=== PATIENT | female | born 1990 | race Caucasian/White ===

== ENCOUNTER 2018-09-22 15:25 | Emergency (ER) | payer SELFPAY ==
[2018-09-22 15:26] VITALS: BP 122/89; PULSE 108; RESP 17; TEMP 36.3; O2SAT 100; BMI 20.2
--- NOTE | 2018-09-22 15:41 | ED.VISSUMM ---
- ER Visit Summary Date of Service: 09/22/18 Chief Complaint: Vomiting and diarrhea History of Present Illness: The patient is a 28 F presenting with vomiting and diarrhea. Patient states this started 1 week ago. She has had several episodes of both vomiting and diarrhea each day. States she has had 3 episodes of vomiting and one episode of diarrhea today. She denies blood in her stool or emesis. She does have sick contacts. She has had subjective fever and chills. She denies urinary complaints. She has had no recent antibiotics. She has a history of IBS. She denies other complaints. Physical Examination: Vitals are stable. HR 108. Patient is afebrile. Alert no acute distress. HEENT exam is unremarkable. Neck is supple. Lungs are clear and equal bilaterally. Heart is regular and tachycardic Abdomen is soft nontender nondistended. No guarding or rebound Extremities are unremarkable. Skin is warm and dry. Remainder of exam is unremarkable. Emergency Department Course and Treatment: Patient was given IV fluids, Zofran. CBC normal except hemoglobin 11.9. Chemistries unremarkable. Liver lipase are normal. Urinalysis unremarkable. HCG negative. Influenza negative. Patient is feeling improved following medication and fluids. She is able to tolerate p.o. in the emergency department. Her abdomen is soft and nontender with no rebound or guarding. She is advised to follow-up with Dr. Covington international logistics coordinator for no doc. Advised return to ED if worsening complaints. Disposition: Discharge home Impression: Vomiting and diarrhea This note was generated with [employer] dictation software. It may contain incorrect words, spelling, and punctuation that were not noted in review of the chart prior to signing ED Disposition - Plan for ED Patient: Chief Complaint: Nausea/Vomiting/Diarrhea Instructions: ED Vomiting Diarrhea Nonspecific Ad Prescriptions: Ondansetron [Zofran Odt] 4 mg PO Q8H PRN PRN #10 tablet PRN Reason: Nausea Referrals: Alanna Covington MD [STAFF PHYSICIAN] -
[2018-09-22 15:42] VITALS: TEMP 36.3
--- NOTE | 2018-09-22 15:44 | ED.DCSUM_ITS ---
- ER Visit Summary Date of Service: 09/22/18 Chief Complaint: Vomiting and diarrhea History of Present Illness: The patient is a 28 F presenting with vomiting and diarrhea. Patient states this started 1 week ago. She has had several episodes of both vomiting and diarrhea each day. States she has had 3 episodes of vomiting and one episode of diarrhea today. She denies blood in her stool or emesis. She does have sick contacts. She has had subjective fever and chills. She denies urinary complaints. She has had no recent antibiotics. She has a history of IBS. She denies other complaints. Physical Examination: Vitals are stable. HR 108. Patient is afebrile. Alert no acute distress. HEENT exam is unremarkable. Neck is supple. Lungs are clear and equal bilaterally. Heart is regular and tachycardic Abdomen is soft nontender nondistended. No guarding or rebound Extremities are unremarkable. Skin is warm and dry. Remainder of exam is unremarkable. Emergency Department Course and Treatment: Patient was given IV fluids, Zofran. CBC normal except hemoglobin 11.9. Chemistries unremarkable. Liver lipase are normal. Urinalysis unremarkable. HCG negative. Influenza negative. Patient is feeling improved following medication and fluids. She is able to tolerate p.o. in the emergency department. Her abdomen is soft and nontender with no rebound or guarding. She is advised to follow-up with Dr. Covington manager of selection and assessment for no doc. Advised return to ED if worsening complaints. Disposition: Discharge home Impression: Vomiting and diarrhea This note was generated with [employer] dictation software. It may contain incorrect words, spelling, and punctuation that were not noted in review of the chart prior to signing ED Disposition - Plan for ED Patient: Chief Complaint: Nausea/Vomiting/Diarrhea Instructions: ED Vomiting Diarrhea Nonspecific Ad Prescriptions: Ondansetron [Zofran Odt] 4 mg PO Q8H PRN PRN #10 tablet PRN Reason: Nausea Referrals: Alanna Covington MD [STAFF PHYSICIAN] -
[2018-09-22] MEDS: 0.9% Normal Saline 1,000 ML 1000 ML IV (15:52)
[2018-09-22] MEDS: Ondansetron 4 MG/2 ML Vial IV (15:52)
[2018-09-22 16:12] LABS: Bacteria 0 SEEN /hpf (None Seen); Mucous, Urine 0 SEEN /hpf (<or=2+)
[2018-09-22 16:13] LABS: Color, Urine Straw (Yellow); Glucose, Dipstick Normal (Normal); Ketone-Dipstick Negative (Negative); Leukocyte Esterase-Dipstick Negative /ul (Negative); Nitrite-Dipstick Negative (Negative); Occult Blood-Urine 50 /ul (Negative); Protein-Dipstick Negative (Negative); Specific Gravity, Urine 1.015 (1.002-1.030); Urine Bilirubin Dipstick Negative (Negative); Urine Clarity Clear (Clear); Urine Urobilinogen Normal (Normal); Urine pH 6.5 (5.0 - 8.0)
[2018-09-22 16:20] LABS: Absolute Lymphocyte Count 1.04 X10^3/ul (0.83-4.51); Absolute Neutrophil Count 3.6 X10^3/uL (2.0-7.7); Basophil# 0.07 X10^3/uL; Basophil% 1.3 % (0-1); Eosinophil# 0.11 X10^3/uL; Eosinophils% 2.1 % (0-5); Hematocrit 38.5 % (37-47); Hemoglobin 11.9 g/dl (12.0-15.0); Lymphocyte # 1.04 X10^3/ul (4.0); Lymphocyte % 19.8 % (19-41); Mean Corp Hgb Conc 30.9 g/gl (32-36); Mean Corpuscular Hgb 24.9 pg (27.0-32.0); Mean Corpuscular Volume 80.5 fL (81-99); Mean Platelet Vol. 11.1 fl (6.2-12.0); Monocyte# 0.43 X10^3/uL; Monocyte% 8.2 % (0-10); Neutrophil # 3.59 X10^3/uL (2.7-7.7); Neutrophil % 68.4 % (47-70); Platelet Count 222 K/mm3 (150-450); RBC Distribution Width CV 16.4 % (11.6-14.6); RBC Distribution Width SD 48.6 fl (35.1-43.9); Red Blood Count 4.78 M/mm3 (4.2-5.4); White Blood Count 5.3 K/mm3 (4.4-11.0)
[2018-09-22 16:27] LABS: POSITIVE COUNT NO; POSITIVE DIFFERENTIAL NO; POSITIVE MORPHOLOGY NO
[2018-09-22 16:28] LABS: Squamous Epithelial Cells - UA 0-5 SEEN /hpf (5-10)
[2018-09-22 16:30] LABS: Red Blood Cells-Urine 0-5 SEEN /hpf (0-5); Transitional Epithelial - Ur 0-5 SEEN /hpf (0-5); White Blood Cells 0-5 SEEN /hpf (0-5)
[2018-09-22 16:35] LABS: Pregnancy, Serum, hCG Quali. NEGATIVE Negative (0-9 Nonpreg)
[2018-09-22 16:36] LABS: ALB/GLOB Ratio 1.1 RATIO (0.9-2.4); AST(SGOT) 13 U/L (15-37); Alanine Aminotransfer ALT/SGPT 18 U/L (13-56); Albumin, Serum 4.4 g/dL (3.2-5.0); Alkaline Phosphatase 75 U/L (45-117); Anion Gap 8 (5-15); BUN 9 mg/dL (7-18); BUN/Creat Ratio 12.5 RATIO (10-20); Chloride 104 mmol/L (98-107); Creatinine, Serum 0.72 mg/dL (0.55-1.02); EST Glomerular Filtration Rate 102 mL/min (>60); Est Glom Filt Rate - Afr Amer 123 mL/min (>60); Estimated Creatinine Clearance 94.11 ml/min; Globulin 3.9 g/dL (2.2-4.2); Glucose 91 mg/dL (74-106); Lipase 93 U/L (73-393); Potassium 3.7 mmol/L (3.5-5.1); Protein, Total 8.3 g/dL (6.4-8.2); Sodium Level 137 mmol/L (136-145)
[2018-09-22 16:39] VITALS: TEMP 36.3
[2018-09-22 17:00] VITALS: TEMP 36.3
--- NOTE | 2018-09-22 17:17 | ED.DEP ---
ED Disposition - Plan for ED Patient: Chief Complaint: Nausea/Vomiting/Diarrhea Instructions: ED Vomiting Diarrhea Nonspecific Ad Prescriptions: Ondansetron [Zofran Odt] 4 mg PO Q8H PRN PRN #10 tablet PRN Reason: Nausea Referrals: Alanna Covington MD [STAFF PHYSICIAN] -
[2018-09-22 17:34] VITALS: BP 105/68; PULSE 89; RESP 17; O2SAT 100
== END 2018-09-22 17:38 | disposition home or self-care (01) ==
LOC: ED 15:46
PROVIDERS: Emergency Provider Emergency Medicine
DX: R11.2 Nausea with vomiting, unspecified (principal); R19.7 Diarrhea, unspecified; K58.9 Irritable bowel syndrome, unspecified; Z72.0 Tobacco use
CPT/HCPCS: 80053; 81001; 83690; 84703; 85025; 87804; 96361; 96374; 99283; J7030; A4216; J2405

== ENCOUNTER 2019-01-13 17:49 | Emergency (ER) | payer SELFPAY ==
[2019-01-13 17:50] VITALS: BP 123/78; PULSE 94; RESP 16; TEMP 36.1; BMI 19.5
--- NOTE | 2019-01-13 18:04 | CT_ITS ---
STUDY: CT ABDOMEN AND PELVIS WITH CONTRAST REASON FOR EXAM: Female, 28 years old. Abdominal pain and vomiting times several days RADIATION DOSAGE (If Supplied By Facility): CTDIvol = ( 5.71 ) mGy, DLP = ( 392.42 ) mGycm TECHNIQUE: Transaxial images were obtained from the dome of the diaphragm to the symphysis pubis with oral contrast. 100ml IV/Oral Isovue 250 was administered. Sagittal and coronal images were reconstructed. Individualized dose optimization techniques were used for this CT. COMPARISON: None. FINDINGS: The visualized lung bases are unremarkable. The visualized portions of the heart are within normal limits. There is mild intrahepatic periportal edema. Normal gallbladder and extrahepatic biliary system. Normal spleen. Normal pancreas. Normal bilateral adrenal glands. Normal right kidney. Normal left kidney. Normal visualized stomach. Normal small intestine. Normal colon. The appendix is visualized and appears normal. Normal abdominal aorta. Normal inferior vena cava. Normal retroperitoneum. Normal urinary bladder. The uterus and adnexal structures are unremarkable. There is a small umbilical hernia containing fat. Normal osseous structures. CT/Abdomen/Pelvis WITH Contrast IMPRESSION: 1. Mild intrahepatic periportal edema. 2. Small fat-containing umbilical hernia. 3. There is no evidence of free intra-abdominal or intrapelvic air or fluid. Electronically Signed: Jose Espinosa MD at 20:33 EDT , Service support ,
--- NOTE | 2019-01-13 18:05 | ED.VISSUMM ---
- ER Visit Summary Date of Service: 01/13/19 Chief Complaint: Abdominal pain History of Present Illness: The patient is a 28 F presenting with abdominal pain. She states this started 3 days ago. She has had nausea and vomiting. She has had mild diarrhea. She denies blood in her stool or emesis. Denies urinary complaints. She has had subjective fever. She has had decreased appetite. She does have sick contacts at work. She denies bad food exposure or travel. Denies recent antibiotics. Denies other complaints. Physical Examination: Vitals are stable. Patient is afebrile. Alert no acute distress. HEENT exam is unremarkable. Neck is supple. Lungs are clear and equal bilaterally. Heart is regular rate and rhythm. Abdomen is soft right lower quadrant tenderness with no rebound or guarding Extremities are unremarkable. Skin is warm and dry. Remainder of exam is unremarkable. Emergency Department Course and Treatment: Patient given IV fluids, Zofran. CBC, chemistries unremarkable. Liver lipase are normal. Urinalysis unremarkable. hCG negative. CT abdomen pelvis shows mild intrahepatic periportal edema. Small fat-containing umbilical hernia. There is no evidence of free intra-abdominal or intrapelvic air or fluid. On reevaluation, patient is feeling improved. She is resting comfortably. She is given prescription for Bentyl and Zofran. Advised to follow-up with primary care physician. Advised return to ED for worsening complaints. Disposition: Discharge home Impression: Abdominal pain This note was generated with [employer] dictation software. It may contain incorrect words, spelling, and punctuation that were not noted in review of the chart prior to signing ED Disposition - Plan for ED Patient: Instructions: ED Abdominal Pain Unkn Cause Prescriptions: Ondansetron [Zofran Odt] 4 mg PO Q8H PRN PRN #10 tablet PRN Reason: Nausea Dicyclomine HCl [Bentyl] 20 mg PO TIDAC #20 capsule Referrals: Lopez Sood DO [NON CLINICAL AFFILIATE] - Radha Alfaro [NON-STAFF] -
--- NOTE | 2019-01-13 18:09 | ED.DCSUM_ITS ---
- ER Visit Summary Date of Service: 01/13/19 Chief Complaint: Abdominal pain History of Present Illness: The patient is a 28 F presenting with abdominal pain. She states this started 3 days ago. She has had nausea and vomiting. She has had mild diarrhea. She denies blood in her stool or emesis. Denies urinary complaints. She has had subjective fever. She has had decreased appetite. She does have sick contacts at work. She denies bad food exposure or travel. Denies recent antibiotics. Denies other complaints. Physical Examination: Vitals are stable. Patient is afebrile. Alert no acute distress. HEENT exam is unremarkable. Neck is supple. Lungs are clear and equal bilaterally. Heart is regular rate and rhythm. Abdomen is soft right lower quadrant tenderness with no rebound or guarding Extremities are unremarkable. Skin is warm and dry. Remainder of exam is unremarkable. Emergency Department Course and Treatment: Patient given IV fluids, Zofran. CBC, chemistries unremarkable. Liver lipase are normal. Urinalysis un remarkable. hCG negative. CT abdomen pelvis shows mild intrahepatic periportal edema. Small fat-containing umbilical hernia. There is no evidence of free intra-abdominal or intrapelvic air or fluid. On reevaluation, patient is feeling improved. She is resting comfortably. She is given prescription for Bentyl and Zofran. Advised to follow-up with primary care physician. Advised return to ED for worsening complaints. Disposition: Discharge home Impression: Abdominal pain This note was generated with [employer] dictation software. It may contain incorrect words, spelling, and punctuation that were not noted in review of the chart prior to signing ED Disposition - Plan for ED Patient: Instructions: ED Abdominal Pain Unkn Cause Prescriptions: Ondansetron [Zofran Odt] 4 mg PO Q8H PRN PRN #10 tablet PRN Reason: Nausea Dicyclomine HCl [Bentyl] 20 mg PO TIDAC #20 capsule Referrals: Lopez Sood DO [NON CLINICAL AFFILIATE] - Radha Alfaro [NON-STAFF] -
[2019-01-13] MEDS: 0.9% Normal Saline 1,000 ML 1000 ML IV (18:18)
[2019-01-13] MEDS: Ondansetron 4 MG/2 ML Vial IV (18:19)
[2019-01-13 18:23] LABS: Mucous, Urine 0 SEEN /hpf (<or=2+); Red Blood Cells-Urine 0 SEEN /hpf (0-5)
[2019-01-13 18:25] LABS: Color, Urine Yellow (Yellow); Glucose, Dipstick Normal (Normal); Ketone-Dipstick 50 mg/dl (Negative); Leukocyte Esterase-Dipstick Negative /ul (Negative); Nitrite-Dipstick Negative (Negative); Occult Blood-Urine Negative /ul (Negative); Protein-Dipstick Negative (Negative); Specific Gravity, Urine 1.015 (1.002-1.030); Urine Bilirubin Dipstick Negative (Negative); Urine Clarity Sl. Cloudy (Clear); Urine Urobilinogen Normal (Normal)
[2019-01-13 18:26] LABS: Absolute Lymphocyte Count 1.67 X10^3/ul (0.83-4.51); Basophil# 0.08 X10^3/uL; Basophil% 1.5 % (0-1); Eosinophil# 0.16 X10^3/uL; Eosinophils% 3.1 % (0-5); Hematocrit 38.5 % (37-47); Hemoglobin 12.5 g/dl (12.0-15.0); Lymphocyte # 1.67 X10^3/ul (4.0); Lymphocyte % 31.9 % (19-41); Mean Corp Hgb Conc 32.5 g/gl (32-36); Mean Corpuscular Hgb 25.9 pg (27.0-32.0); Mean Corpuscular Volume 79.7 fL (81-99); Monocyte# 0.33 X10^3/uL; Monocyte% 6.3 % (0-10); Neutrophil # 2.99 X10^3/uL (2.7-7.7); Neutrophil % 57.2 % (47-70); POSITIVE COUNT NO; POSITIVE DIFFERENTIAL NO; POSITIVE MORPHOLOGY NO; Platelet Count 197 K/mm3 (150-450); RBC Distribution Width CV 15.6 % (11.6-14.6); RBC Distribution Width SD 44.8 fl (35.1-43.9); Red Blood Count 4.83 M/mm3 (4.2-5.4); White Blood Count 5.2 K/mm3 (4.4-11.0)
[2019-01-13 18:33] LABS: Internal QC Validated? YES +Cl - CLEAR BKGD; Pregnancy, Serum, hCG Quali. NEGATIVE Negative
[2019-01-13 18:38] LABS: Squamous Epithelial Cells - UA 0-5 SEEN /hpf (5-10)
[2019-01-13 18:40] LABS: Bacteria RARE /hpf (None Seen); White Blood Cells 0-5 SEEN /hpf (0-5)
[2019-01-13 18:41] LABS: ALB/GLOB Ratio 1.2 RATIO (0.9-2.4); AST(SGOT) 12 U/L (15-37); Alanine Aminotransfer ALT/SGPT 15 U/L (13-56); Albumin, Serum 4.5 g/dL (3.2-5.0); Alkaline Phosphatase 72 U/L (45-117); Anion Gap 9 (5-15); BUN 6 mg/dL (7-18); BUN/Creat Ratio 7.1 RATIO (10-20); Chloride 104 mmol/L (98-107); Creatinine, Serum 0.85 mg/dL (0.55-1.02); EST Glomerular Filtration Rate 84 mL/min (>60); Est Glom Filt Rate - Afr Amer 102 mL/min (>60); Estimated Creatinine Clearance 77.08 ml/min; Globulin 3.6 g/dL (2.2-4.2); Glucose 79 mg/dL (74-106); Lipase 59 U/L (73-393); Potassium 3.7 mmol/L (3.5-5.1); Protein, Total 8.1 g/dL (6.4-8.2); Sodium Level 139 mmol/L (136-145); Transitional Epithelial - Ur 0-5 SEEN /hpf (0-5)
[2019-01-13 20:13] VITALS: BP 129/85; PULSE 78; RESP 16; O2SAT 97
[2019-01-13 22:00] VITALS: BP 121/79; PULSE 74; RESP 16; O2SAT 98
--- NOTE | 2019-01-13 23:52 | ED.DEP ---
ED Disposition - Plan for ED Patient: Instructions: ED Abdominal Pain Unkn Cause Prescriptions: Ondansetron [Zofran Odt] 4 mg PO Q8H PRN PRN #10 tablet PRN Reason: Nausea Dicyclomine HCl [Bentyl] 20 mg PO TIDAC #20 capsule Referrals: Lopez Sood DO [NON CLINICAL AFFILIATE] - Radha Alfaro [NON-STAFF] -
[2019-01-14 00:13] VITALS: BP 101/64; PULSE 59; PULSE 63; RESP 16; TEMP 37.2; O2SAT 99
== END 2019-01-14 00:17 | disposition home or self-care (01) ==
LOC: ED 18:32
PROVIDERS: Emergency Provider Emergency Medicine
DX: R10.9 Unspecified abdominal pain (principal); R11.2 Nausea with vomiting, unspecified; R19.7 Diarrhea, unspecified; K42.9 Umbilical hernia without obstruction or gangrene; Z72.0 Tobacco use
CPT/HCPCS: 74177; 80053; 81001; 83690; 84703; 85025; 96361; 96374; 99283; J7030; Q9967; A4216; J2405

== ENCOUNTER → 2019-08-27 09:29 | Outpatient (CLI) | payer MEDICAID, SELFPAY ==
--- NOTE | 2019-08-27 09:33 | US_ITS ---
STUDY: THYROID ULTRASOUND REASON FOR EXAM: Female, 29 years old. Goiter TECHNIQUE: Ultrasound evaluation of the thyroid was performed with real-time and static escobedo-scale imaging. COMPARISON: None. FINDINGS: RIGHT LOBE: The right lobe of the thyroid gland measures 4.5 x 1.5 x 1.0 cm. There is a homogeneous echotexture. There are no demonstrated solid, cystic or complex lesions. LEFT LOBE: The left lobe of the thyroid gland measures 4.5 x 1.5 x 1.1 cm. There is a homogeneous echotexture. There is a small cyst of the midpole measuring 3 x 2 x 2 mm. ISTHMUS: The isthmus measures 2 mm . The regional lymph nodes are normal. US/Thyroid IMPRESSION: 3 x 2 x 2 mm cyst of the midpole of the left thyroidal lobe. The study is otherwise within normal limits. Electronically Signed: Jose Espinosa MD at 19:45 EST , Service support ,
== END ==
DX: E04.9 Nontoxic goiter, unspecified (principal)
CPT/HCPCS: 76536

== ENCOUNTER → 2020-11-03 12:43 | Outpatient (CLI) | payer MEDICAID, SELFPAY ==
[2020-11-03 13:33] LABS: Absolute Lymphocyte Count 1.38 X10^3/uL (0.83-4.51); Absolute Neutrophil Count 4.3 X10^3/uL (2.0-7.7); Basophil% 1.5 % (0-1); Eosinophil# 0.25 X10^3/uL; Eosinophils% 3.9 % (0-5); Hematocrit 38.5 % (37-47); Hemoglobin 11.7 g/dL (12.0-15.0); Lymphocyte # 1.38 X10^3/ul (4.0); Lymphocyte % 21.3 % (19-41); Mean Corp Hgb Conc 30.4 g/dL (32-36); Mean Corpuscular Hgb 25.4 pg (27.0-32.0); Mean Corpuscular Volume 83.5 fL (81-99); Mean Platelet Vol. 10.8 fl (6.2-12.0); Monocyte# 0.38 X10^3/uL; Monocyte% 5.9 % (0-10); NRBC Flagged by Analyzer 0 % (0-5); Neutrophil # 4.34 X10^3/uL (2.7-7.7); Neutrophil % 66.9 % (47-70); Platelet Count 259 K/mm3 (150-450); RBC Distribution Width CV 16.2 % (11.6-14.6); RBC Distribution Width SD 49.9 fl (35.1-43.9); Red Blood Count 4.61 M/mm3 (4.2-5.4); White Blood Count 6.5 K/mm3 (4.4-11.0)
[2020-11-03 14:06] LABS: ALB/GLOB Ratio 1.1 RATIO (0.9-2.4); AST(SGOT) 12 U/L (15-37); Alanine Aminotransfer ALT/SGPT 21 U/L (13-56); Alkaline Phosphatase 86 U/L (45-117); Anion Gap 6 (5-15); BUN 8 mg/dL (7-18); BUN/Creat Ratio 12.1 RATIO (10-20); Calcium,Total 9.2 mg/dL (8.5-10.1); Chloride 104 mmol/L (98-107); Creatinine, Serum 0.66 mg/dL (0.55-1.02); EST Glomerular Filtration Rate 111 mL/min (>60); Est Glom Filt Rate - Afr Amer 134 mL/min (>60); Globulin 3.6 g/dL (2.2-4.2); Glucose 91 mg/dL (74-106); Potassium 3.8 mmol/L (3.5-5.1); Protein, Total 7.6 g/dL (6.4-8.2); Sodium Level 136 mmol/L (136-145); T4 Total, Thyroxin 8.2 ug/dL (4.8-13.9); Thyroid Stim Hormone (TSH) 1.32 uIU/mL (0.358-3.74)
[2020-11-04 16:08] LABS: Endomysial Antibody IgA Negative (Negative); Immunoglobulin A 194 mg/dL (87-352)
[2020-11-04 17:04] LABS: H. Pylori Antibody (IgG) 0.16 (0.00-0.79); t-Transglutaminase IgA <2 U/mL (0-3)
[2020-11-04 17:05] LABS: ANTINUCLEAR ANTIBODIES DIRECT Negative (Negative)
== END ==
DX: R11.2 Nausea with vomiting, unspecified (principal)
CPT/HCPCS: 36415; 80053; 82784; 83516; 84436; 84443; 85025; 86038; 86255; 86677

== ENCOUNTER → 2020-11-15 09:21 | Outpatient (CLI) | payer MEDICAID, SELFPAY ==
--- NOTE | 2020-11-15 09:23 | US_ITS ---
STUDY: ABDOMINAL ULTRASOUND REASON FOR EXAM: Female, 30 years old. NAUSEA W/ VOMITING, UNSPECIFIED TECHNIQUE: Transabdominal ultrasound was performed with real-time and static escobedo scale imaging. TECHNICAL QUALITY: Adequate. COMPARISON: CT scan 01/13/2019. FINDINGS: Liver: The liver measures 14.9 cm. There is normal echogenicity of the liver. The bile ducts are within normal limits. There is hepatic color flow. The direction of portal flow is hepatopetal. There is no demonstrated mass lesion. Portal vein measurement: Gallbladder: Normal distended gallbladder. The gallbladder wall measures 1.1 mm. There is a negative sonographic Samuel''s sign. There is no pericholecystic fluid. There are no gallstones. Common Bile Duct (C.B.D.): The common bile duct measures 2.3 mm. Pancreas: Normal size of the head, body and tail of the pancreas. There is normal echogenicity of the pancreas. There is no demonstrated pancreatic mass or cyst. Spleen: Normal size of the spleen. The spleen measures 8.7 cm. Right Kidney: Normal size of the right kidney. The right kidney measures 10.7 cm. Normal renal cortex. The right cortex measures 1.2 cm. There is no demonstrated renal mass or cyst. There is no right hydronephrosis. Left Kidney: Normal size of the left kidney. The left kidney measures 10.2 cm. Normal renal cortex. The left cortex measures 1.3 cm. There is no demonstrated renal mass or cyst. There is no left hydronephrosis. Aorta: 1.9 cm I.V.C.: The IVC is patent. There is no ascites. US/Abdomen Complete IMPRESSION: Normal abdominal ultrasound examination. Electronically Signed: Jay Singh MD at 23:59 EST , Service support ,
== END ==
DX: R11.2 Nausea with vomiting, unspecified (principal)
CPT/HCPCS: 76700